=== PATIENT | female | born 1995 | race Two or more races ===

== ENCOUNTER → 2017-01-13 | Outpatient (CLI) | payer OTHER ==
[~2017-01-13] MED LIST: CETI10TA PO; FERR325T3 PO; MICR1TAB9 PO; NAPR500T2 PO; OMEP40CA2 PO
[2017-01-13 18:44] LABS: ALBUMIN 3.6 GM/DL (3.2-5.2); ALBUMIN/GLOBULIN RATIO 0.95 (1.00-1.93); ALKALINE PHOSPHATASE 54 U/L (45-117); ALT/SGPT 19 U/L (12-78); ANION GAP 7 MEQ/L (8-16); AST/SGOT 9 U/L (15-37); BILIRUBIN,TOTAL 0.2 MG/DL (0.2-1.0); BLOOD UREA NITROGEN 8 MG/DL (7-18); CALCIUM LEVEL 8.8 MG/DL (8.5-10.1); CARBON DIOXIDE LEVEL 25 MEQ/L (21-32); CHLORIDE LEVEL 108 MEQ/L (98-107); CHOLESTEROL LEVEL 191 MG/DL (<200); CREATININE FOR GFR 0.84 MG/DL (0.55-1.02); FERRITIN 25 NG/ML (8-252); GLOMERULAR FILTRATION RATE > 60.0 (>60); GLUCOSE, FASTING 79 MG/DL (70-105); POTASSIUM SERUM 4.2 MEQ/L (3.5-5.1); SODIUM LEVEL 140 MEQ/L (136-145); TOTAL PROTEIN 7.4 GM/DL (6.4-8.2); TRIGLYCERIDES LEVEL 83 MG/DL (<150)
[2017-01-13 18:49] LABS: BASO % 0.1 % (0.0-1.0); EOS % 0.2 % (0.0-3.0); LYMPH # 2.1 K/mm3 (1.5-6.5); LYMPH % 34.5 % (24.0-44.0); MEAN CORPUSCULAR HEMOGLOBIN 29.7 pg (27.0-33.0); MEAN CORPUSCULAR VOLUME 95.6 fl (80.0-96.0); MONO # 0.3 K/mm3 (0.0-0.8); MONO % 5.1 % (0.0-5.0); NEUTROPHILS # 3.5 K/mm3 (1.8-7.7); NEUTROPHILS % 58.5 % (36.0-66.0); RED CELL DISTRIBUTION WIDTH 11.7 % (11.5-14.5)
== END ==
LOC: M WUC 11:07
PROVIDERS: ATTEND Physician Assistant Medical
DX: D64.9 Anemia, unspecified (principal); E78.2 Mixed hyperlipidemia

== ENCOUNTER 2017-04-17 13:33 | Emergency (ER) | payer MEDICAID, OTHER ==
[~2017-04-17] VITALS: Ht 167.6 cm; Wt 68.6 kg
[~2017-04-17 13:33] MED LIST changes: -NAPR500T2 PO; +NAPR500T3 PO
[2017-04-17 13:34] VITALS: BP 102/69
[2017-04-17 15:23] LABS: BASO % 0.2 % (0.0-1.0); EOS % 0.6 % (0.0-3.0); LARGE UNSTAINED CELL # 0.1 K/mm3 (0.0-0.4); LARGE UNSTAINED CELL % 0.7 % (0.0-4.0); LYMPH # 1.5 K/mm3 (1.5-6.5); LYMPH % 17.8 % (24.0-44.0); MEAN CORPUSCULAR HEMOGLOBIN 30.6 pg (27.0-33.0); MEAN CORPUSCULAR HGB CONC 33.3 g/dl (32.0-36.5); MEAN CORPUSCULAR VOLUME 91.9 fl (80.0-96.0); MONO # 0.4 K/mm3 (0.0-0.8); MONO % 4.4 % (0.0-5.0); NEUTROPHILS # 6.3 K/mm3 (1.8-7.7); NEUTROPHILS % 76.4 % (36.0-66.0); PLATELET COUNT, AUTOMATED 254 k/mm3 (150-450); RED CELL DISTRIBUTION WIDTH 11.7 % (11.5-14.5); WHITE BLOOD COUNT 8.2 K/mm3 (4.0-10.0)
[2017-04-17] MEDS ORDERED: metroNIDAZOLE (FLAGYL) 500 MG TAB PO ONE (15:30)
--- NOTE | 2017-04-17 16:41 | REP ---
FIRST TRIMESTER ULTRASOUND: Real-time sonographic evaluation of the gravid uterus is performed utilizing transabdominal technique. There is a single living intrauterine gestation with estimated gestational age of 7 weeks 6 days based on a crown rump length of 15 mm. EDC is 11/28/2017. heart rate 168 beats per minute. There is no subchorionic hemorrhage. Cystic structure of the left ovary probably represents a corpus luteum 2.7 x 2.0 x 2.3 cm. Blood flow is seen in each ovary with duplex Doppler evaluation, with no torsion. Signed by Gideon Escalera MD 04/17/2017 05:00 P
[2017-04-17] MEDS ORDERED: FLAG500T PO (16:42)
== END 2017-04-17 16:58 | disposition home or self-care (01) ==
LOC: M ED 13:33
DX: O23.591 Infection of other part of genital tract in pregnancy, first trimester (principal); Z3A.01 Less than 8 weeks gestation of pregnancy

== ENCOUNTER → 2017-05-02 | Outpatient (CLI) | payer MEDICAID, OTHER ==
[~2017-05-02] MED LIST changes: +FLAG500T PO; +PRENTAB55 PO
[2017-05-02 10:44] LABS: BASO % 0.1 % (0.0-1.0); EOS % 0.2 % (0.0-3.0); LARGE UNSTAINED CELL # 0.1 K/mm3 (0.0-0.4); LYMPH # 1.5 K/mm3 (1.5-6.5); LYMPH % 20.1 % (24.0-44.0); MEAN CORPUSCULAR HEMOGLOBIN 31.4 pg (27.0-33.0); MEAN CORPUSCULAR HGB CONC 34.4 g/dl (32.0-36.5); MEAN CORPUSCULAR VOLUME 91.2 fl (80.0-96.0); MONO # 0.4 K/mm3 (0.0-0.8); MONO % 4.9 % (0.0-5.0); NEUTROPHILS # 5.4 K/mm3 (1.8-7.7); NEUTROPHILS % 73.6 % (36.0-66.0); PLATELET COUNT, AUTOMATED 241 k/mm3 (150-450); RED CELL DISTRIBUTION WIDTH 11.9 % (11.5-14.5); WHITE BLOOD COUNT 7.4 K/mm3 (4.0-10.0)
[2017-05-02 11:25] LABS: HBsAg Prenatal NEGATIVE (NEGATIVE)
== END ==
LOC: M LAB 09:53
PROVIDERS: ATTEND Obstetrics & Gynecology
DX: Z34.81 Encounter for supervision of other normal pregnancy, first trimester (principal)

== ENCOUNTER 2017-06-20 15:09 | Emergency (ER) | payer MEDICAID, OTHER ==
[~2017-06-20] VITALS: Ht 167.6 cm; Wt 68.4 kg
[~2017-06-20 15:09] MED LIST changes: -PRENTAB55 PO
[2017-06-20] MEDS ORDERED: PRENTAB55 PO (15:21)
[2017-06-20] MEDS ORDERED: ACETAMINOPHEN 325 MG TAB PO ONE (17:15)
[2017-06-20 17:51] LABS: BASO % 0.1 % (0.0-1.0); EOS # 0.2 K/mm3 (0.0-0.50); EOS % 1.6 % (0.0-3.0); LARGE UNSTAINED CELL # 0.1 K/mm3 (0.0-0.4); LARGE UNSTAINED CELL % 0.6 % (0.0-4.0); LYMPH # 1.4 K/mm3 (1.5-6.5); LYMPH % 11.7 % (24.0-44.0); MEAN CORPUSCULAR HEMOGLOBIN 30.6 pg (27.0-33.0); MEAN CORPUSCULAR HGB CONC 33.2 g/dl (32.0-36.5); MEAN CORPUSCULAR VOLUME 92.2 fl (80.0-96.0); MONO # 0.4 K/mm3 (0.0-0.8); MONO % 3.5 % (0.0-5.0); NEUTROPHILS # 9.3 K/mm3 (1.8-7.7); NEUTROPHILS % 82.4 % (36.0-66.0); PLATELET COUNT, AUTOMATED 213 k/mm3 (150-450); RED CELL DISTRIBUTION WIDTH 12.2 % (11.5-14.5); WHITE BLOOD COUNT 11.3 K/mm3 (4.0-10.0)
--- NOTE | 2017-06-20 18:05 | REP ---
STAT obstetric ultrasound: There is a single intrauterine gestation. position is variable. heart rate is 144 beats per minute. The placenta is anterior. There is no placenta previa or abruptio. Placenta is grade zero. Subjectively the amniotic fluid volume is normal. The cervix measures 3.4 cm in length. Maternal adnexa and cul-de-sac are unremarkable. By today's measurements the gestational age is 17 weeks 2 days with an MARYLIN of 11/26/1928 and. According to the first ultrasound during this gestation the gestational age is 17 weeks 0 days. weight is 188 grams (0 pounds, 6 ounces. This is the 59 percentile for 17 weeks 0 days. The gestation is premature for evaluation of anatomy, nevertheless, during the examination we identified normal cranium, choroid plexus, cavum septum pellucidum, cerebellum/posterior fossa, diaphragm, stomach, cord insertion, kidneys, bladder, spine and lower extremities. Complete anatomic survey might be considered at 20 weeks gestation. Signed by Gideon Rios MD 06/20/2017 05:56 P
[2017-06-20 18:47] LABS: ANION GAP 9 MEQ/L (8-16); BLOOD UREA NITROGEN 4 MG/DL (7-18); CALCIUM LEVEL 8.9 MG/DL (8.5-10.1); CARBON DIOXIDE LEVEL 25 MEQ/L (21-32); CHLORIDE LEVEL 104 MEQ/L (98-107); CREATININE FOR GFR 0.56 MG/DL (0.55-1.02); GLOMERULAR FILTRATION RATE > 60.0 (>60); GLUCOSE, FASTING 72 MG/DL (70-105); HCG, SERUM QUANTITATIVE 23037 MIU/ML; POTASSIUM SERUM 3.9 MEQ/L (3.5-5.1); SODIUM LEVEL 138 MEQ/L (136-145)
[2017-06-20 19:22] VITALS: BP 100/62
== END 2017-06-20 19:23 | disposition home or self-care (01) ==
LOC: M ED 15:09
DX: O20.9 Hemorrhage in early pregnancy, unspecified (principal); Z3A.17 17 weeks gestation of pregnancy

== ENCOUNTER → 2017-07-03 | Outpatient (CLI) | payer OTHER ==
[~2017-07-03] MED LIST changes: +PRENTAB55 PO
--- NOTE | 2017-07-04 05:48 | REP ---
Clinical: Anatomical evaluation. Comparison: 06/20/2017 . Findings: Examination demonstrates a single live intrauterine in breech presentation. motion is identified by technologist. Placenta is noted anteriorly and grade zero without evidence for placenta previa or abruption. Amniotic fluid volume is normal. Cervix measures 3.2 cm in length and appears closed. No evidence for nuchal cord. Gestational age by LMP 18 weeks 6 days with MARYLIN 11/28/2017 . Gestational age by current measurements 19 weeks 1 day with MARYLIN 11/26/2017 . FHR equals 144 beats per minute. Estimated weight 280 grams ( 62nd percentile). Anatomical assessment demonstrates normal structures including cranium, choroid plexus, cavum, cerebellum/posterior fossa, lungs, four-chamber heart, diaphragm, stomach, cord insertion/three-vessel cord, kidneys/bladder, spine, and extremities. Limited evaluation of the facial features and cardiac ventricular outflow tracts again noted. Impression: 1. Single live intrauterine in breech presentation demonstrating appropriate interval growth. 2. With exception of the facial features and cardiac ventricular outflow tracts, anatomical assessment is complete and normal. Signed by Johnnie Ramos MD 07/04/2017 05:40 A
== END ==
LOC: M RAD 11:07
PROVIDERS: ATTEND Advanced Practice Midwife
DX: Z34.80 Encounter for supervision of other normal pregnancy, unspecified trimester (principal)

== ENCOUNTER → 2017-08-02 | Outpatient (CLI) | payer OTHER ==
--- NOTE | 2017-08-02 13:04 | REP ---
OB ULTRASOUND: Real-time sonographic evaluation of the gravid uterus performed. There is a single living intrauterine gestation. Estimated gestational age is 23 weeks 1 day based on first ultrasound EDC 11/28/2017. Today's measurements indicate appropriate growth. BPD 53 mm = 22 weeks 2 days, 27th percentile HC 199 mm = 22 weeks 0 days, 18th percentile AC 180 mm = 22 weeks 6 days, 44th percentile Femur length 42 mm = 23 weeks 4 days, 63rd percentile HC/AC ratio 1.11 within normal range. Estimated weight 556 grams, 43rd percentile. Cervix is closed and measures 4.4 cm in length. heart rate 140 beats per minute. SEEN/GROSSLY UNREMARKABLE Lateral ventricles Yes Posterior fossa Yes Upper lip Yes Four-chamber heart Yes LVOT Yes RVOT Yes Stomach Yes Cord insertion Yes Three vessel cord Yes Kidneys Yes Bladder Yes Spine Yes position: Vertex. Placenta: Anterior and grade 0 with no previa or abruption. Amniotic fluid: Within normal limits. Signed by Gideon Escalera MD 08/02/2017 02:39 P
== END ==
LOC: M RAD 11:21
PROVIDERS: ATTEND Specialist
DX: Z36.2 Encounter for other antenatal screening follow-up (principal)

== ENCOUNTER → 2017-10-30 | Outpatient (REF) | payer OTHER, MEDICAID | LOC: M LAB REF 12:50 | DX: Z34.83 Encounter for supervision of other normal pregnancy, third trimester (principal) ==

== ENCOUNTER 2017-11-28 05:57 | Inpatient (IN) | payer OTHER, MEDICAID ==
[2017-11-28] MEDS: LACTATED RINGER'S 1000 ML IV (06:25)
[2017-11-28 06:37] LABS: HEMATOCRIT 37.1 % (36.0-47.0); HEMOGLOBIN 11.9 g/dl (12.0-16.0); MEAN CORPUSCULAR HEMOGLOBIN 27.1 pg (27.0-33.0); MEAN CORPUSCULAR HGB CONC 32.1 g/dl (32.0-36.5); MEAN CORPUSCULAR VOLUME 84.5 fl (80.0-96.0); PLATELET COUNT, AUTOMATED 223 10^3/uL (150-450); RED BLOOD COUNT 4.39 10^6/uL (4.00-5.40); RED CELL DISTRIBUTION WIDTH 12.7 % (11.5-14.5); WHITE BLOOD COUNT 15.1 10^3/uL (4.0-10.0)
[2017-11-28 06:52] LABS: GLUCOSE,RANDOM 88 MG/DL (LESS THAN 200)
[2017-11-28] MEDS ORDERED: OXYTOCIN 30 UNITS IN 0.9% NaCl 500ML IV BAG (J2590) As Ordered (07:23)
[2017-11-28 07:27] LABS: AMPHETAMINES URINE REFLEX NEGATIVE (NEGATIVE); BARBITURATES URINE REFLEX NEGATIVE (NEGATIVE); BENZODIAZEPINES URINE REFLEX NEGATIVE (NEGATIVE); CANNABINOIDS URINE REFLEX NEGATIVE (NEGATIVE); COCAINE METABOLITE URINE REFLE NEGATIVE (NEGATIVE); METHADONE URINE REFLEX NEGATIVE (NEGATIVE); OPIATES URINE REFLEX NEGATIVE (NEGATIVE); PHENCYCLIDINE URINE REFLEX NEGATIVE (NEGATIVE)
[2017-11-28 07:52] LABS: CORD GAS ABE V -8.1; CORD GAS O2 SAT V 22.5 %; CORD GAS PH V 7.184 UNITS; CORD GAS PO2 V 13.4 mmHg; CORD GAS SBC V 16.4 MEQ/L; CORD GAS TCO2 V 22.7 MEQ/L
[2017-11-28 07:54] LABS: CORD GAS ABE A -10.2; CORD GAS HCO3 A 19.3 MEQ/L; CORD GAS O2 SAT A 22.5 %; CORD GAS PH A 7.148 UNITS; CORD GAS PO2 A 15.4 mmHg; CORD GAS SBC A 14.9 MEQ/L; CORD GAS TCO2 A 21.1 MEQ/L
[2017-11-28] MEDS: OXYTOCIN DRIP 30 UNITS in APPROPRIATE DILUENT 1 EA IV (08:05)
[2017-11-28] MEDS: LR 1,000 ML IV (08:06)
[2017-11-28] MEDS ORDERED: METHYLERGONOVINE MALEATE 0.2 MG TAB PO (08:15)
[2017-11-28] MEDS: LIDOCAINE 1% MDV INJ 50 ML VIAL INFIL (08:15)
[2017-11-28] MEDS ORDERED: DOCUSATE SODIUM 100 MG CAP PO (08:15)
[2017-11-28] MEDS ORDERED: MOM 30ML SUSPENSION UDC PO (08:15)
[2017-11-28] MEDS ORDERED: MEASLES,MUMPS,RUBELLA VACCINE INJ (MMR-II) (90707) SC (08:15)
[2017-11-28] MEDS ORDERED: RHOGAM 300 MCG (1500 IU) INJ (J2790) IM (08:15)
[2017-11-28] MEDS ORDERED: ANUSOL HC CREAM 30GM TOP (08:15)
[2017-11-28] MEDS ORDERED: IBUPROFEN 800 MG TAB PO (08:15)
[2017-11-28] MEDS ORDERED: ACETAMINOPHEN 500 MG TAB PO (08:15)
[2017-11-28 12:13] LABS: BEDSIDE GLUCOSE 89 MG/DL (70-105)
[2017-11-28] MEDS: PRENATAL VITAMINS CHEWABLE TABLET PO (14:15)
[2017-11-28] MEDS: DIBUCAINE 1% OINTMENT 30GM TOP (14:16)
[2017-11-29] MEDS: PRENATAL VITAMINS CHEWABLE TABLET PO (09:02)
[2017-11-30] MEDS: PRENATAL VITAMINS CHEWABLE TABLET PO (07:59)
== END 2017-11-30 11:45 | disposition home or self-care (01) | DRG 560 ==
LOC: M LDO 05:57 → M LDI 06:20 → M OBS 13:59
PROVIDERS: Specialist
PROC: 10E0XZZ Delivery of Products of Conception, External Approach (ICD-10-PCS; principal; 2017-11-28)
PROC: 0HQ9XZZ Repair Perineum Skin, External Approach (ICD-10-PCS; 2017-11-28)
DX: O62.3 Precipitate labor (principal); Z3A.40 40 weeks gestation of pregnancy; O77.0 Labor and delivery complicated by meconium in amniotic fluid; O76 Abnormality in fetal heart rate and rhythm complicating labor and delivery; O70.0 First degree perineal laceration during delivery; O32.6XX0 Maternal care for compound presentation, not applicable or unspecified; Z37.0 Single live birth

== ENCOUNTER 2019-06-14 17:57 | Emergency (ER) | payer OTHER ==
[~2019-06-14] VITALS: Ht 167.6 cm; Wt 63.6 kg
[~2019-06-14 17:57] MED LIST changes: +IBUP-1114 PO; +MAPA500T2 PO; +MICR1TAB17 PO; -MICR1TAB9 PO; +NAPR-885 PO; -NAPR500T3 PO
[2019-06-14] MEDS ORDERED: NS 1,000 ML IV ONE (18:15)
[2019-06-14 18:21] LABS: BASO % 0.1 % (0.0-1.0); HEMATOCRIT 36.4 % (36.0-47.0); HEMOGLOBIN 11.3 g/dl (12.0-15.5); LYMPH # 2.1 10^3/uL (1.5-5.0); LYMPH % 21.5 % (24.0-44.0); MEAN CORPUSCULAR VOLUME 83.9 fl (80.0-96.0); MONO # 0.6 10^3/uL (0.0-0.8); MONO % 5.6 % (0.0-5.0); NEUTROPHILS # 7.1 10^3/uL (1.5-8.5); NEUTROPHILS % 72.5 % (36.0-66.0); PLATELET COUNT, AUTOMATED 297 10^3/uL (150-450); RED BLOOD COUNT 4.34 10^6/uL (4.00-5.40); WHITE BLOOD COUNT 9.8 10^3/uL (4.0-10.0)
[2019-06-14 19:18] LABS: ACETAMINOPHEN LEVEL < 2.0 UG/ML (10.0-30.0); ALBUMIN 3.8 GM/DL (3.2-5.2); ALT/SGPT 14 U/L (12-78); BILIRUBIN,DIRECT 0.2 MG/DL (0.0-0.2); BILIRUBIN,TOTAL 0.6 MG/DL (0.2-1.0); BLOOD UREA NITROGEN 7 MG/DL (7-18); CALCIUM LEVEL 9.3 MG/DL (8.5-10.1); CARBON DIOXIDE LEVEL 21 MEQ/L (21-32); CHLORIDE LEVEL 108 MEQ/L (98-107); CREATININE FOR GFR 0.89 MG/DL (0.55-1.30); ETHYL ALCOHOL (ETHANOL) < 0.003 % (0.000-0.010); GLOMERULAR FILTRATION RATE > 60.0 (>60); GLUCOSE, FASTING 140 MG/DL (70-100); HCG, SERUM QUANTITATIVE 21086 MIU/ML; POTASSIUM SERUM 3.7 MEQ/L (3.5-5.1); SALICYLATE LEVEL < 1.7 MG/DL (5.0-30.0); SODIUM LEVEL 138 MEQ/L (136-145); TOTAL PROTEIN 7.1 GM/DL (6.4-8.2)
--- NOTE | 2019-06-14 19:50 | REPVR ---
EXAM: CT Head Without Contrast EXAM DATE/TIME: 06/14/2019 7:07 PM CLINICAL HISTORY: 23 years old, female; Altered mental status/memory loss; Confusion or disorientation; Additional info: AMS TECHNIQUE: Imaging protocol: Computed tomography of the head without contrast. Radiation optimization: All CT scans at this facility use at least one of these dose optimization techniques: automated exposure control; mA and/or kV adjustment per patient size (includes targeted exams where dose is matched to clinical indication); or iterative reconstruction. COMPARISON: No relevant prior studies available. FINDINGS: Brain: No CT evidence of acute intracranial hemorrhage or acute territorial infarction. No significant mass effect or midline shift. Basal cisterns patent. Ventricles: Normal in size and configuration. Bones/joints: No acute osseous abnormality. Sinuses: Grossly unremarkable. Mastoid air cells: Grossly unremarkable. Soft tissues: Grossly unremarkable. IMPRESSION: No CT evidence of acute intracranial pathology. Electronically signed by: Rodrigo Son On 06/14/2019 19:50:16 PM
[2019-06-14 21:14] LABS: AMPHETAMINES LEVEL URINE NEGATIVE (NEGATIVE); BARBITURATES URINE NEGATIVE (NEGATIVE); BENZODIAZEPINES URINE NEGATIVE (NEGATIVE); CANNABINOIDS URINE NEGATIVE (NEGATIVE); COCAINE METABOLITE URINE NEGATIVE (NEGATIVE); METHADONE URINE NEGATIVE (NEGATIVE); OPIATES URINE NEGATIVE (NEGATIVE); PHENCYCLIDINE URINE NEGATIVE (NEGATIVE)
[2019-06-14 21:18] VITALS: BP 125/75
--- NOTE | 2019-06-15 20:31 | ECGEPIP ---
[facility] - ED Test Date: 2019-06-14 Pat Name: JEANNE NAM Department: Room: - Gender: Female [employer] Professor: : [id number] Requested By: DELORIS MENDES Order Number: [id number] Reading MD: Juju Lopez Measurements Intervals [place] Rate: 78 P: 40 ME: 147 QRS: 67 QRSD: 88 T: 44 QT: 381 QTc: 434 Interpretive Statements SINUS RHYTHM WITH SINUS ARRHYTHMIA NSTTW abnormalities NO PRIOR Electronically Signed on 06-15-2019 20:31:26 EDT by Juju Lopez
== END 2019-06-14 21:42 | disposition home or self-care (01) ==
LOC: M ED 17:57 → EDBD 17:57 → M ED 21:42
DX: O26.891 Other specified pregnancy related conditions, first trimester (principal); R55 Syncope and collapse; O99.419 Diseases of the circulatory system complicating pregnancy, unspecified trimester; I49.9 Cardiac arrhythmia, unspecified; Z3A.00 Weeks of gestation of pregnancy not specified; Y99.0 Civilian activity done for income or pay; Z91.018 Allergy to other foods
CPT/HCPCS: 70450; 80048; 80076; 80307; 81001; 84443; 84702; 85025; 93005; 93041; 99284; G0480

== ENCOUNTER → 2019-07-10 | Outpatient (CLI) | payer OTHER ==
[2019-07-10 14:55] LABS: BASO % 0.1 % (0.0-1.0); HEMATOCRIT 39.2 % (36.0-47.0); HEMOGLOBIN 12.1 g/dl (12.0-15.5); LYMPH # 2.2 10^3/uL (1.5-5.0); LYMPH % 25.3 % (24.0-44.0); MEAN CORPUSCULAR HEMOGLOBIN 27.3 pg (27.0-33.0); MEAN CORPUSCULAR HGB CONC 30.9 g/dl (32.0-36.5); MEAN CORPUSCULAR VOLUME 88.3 fl (80.0-96.0); MONO # 0.6 10^3/uL (0.0-0.8); MONO % 7.3 % (0.0-5.0); NEUTROPHILS # 5.7 10^3/uL (1.5-8.5); NEUTROPHILS % 66.9 % (36.0-66.0); PLATELET COUNT, AUTOMATED 288 10^3/uL (150-450); RED BLOOD COUNT 4.44 10^6/uL (4.00-5.40); WHITE BLOOD COUNT 8.5 10^3/uL (4.0-10.0)
[2019-07-10 16:09] LABS: CHLAMYDIA DNA AMPLIFICATION NEGATIVE (NEGATIVE); GC DNA AMPLIFICATION NEGATIVE (NEGATIVE)
[2019-07-11 10:50] LABS: HEPATITIS C VIRUS ABY INDEX 0.2 INDEX (<0.8); HIV 1&2 SCREEN CENTAUR NEGATIVE (NEGATIVE); RUBELLA IgG QUALITATIVE IMMUNE (IMMUNE)
== END ==
LOC: M SMT 09:23
PROVIDERS: ATTEND Obstetrics & Gynecology
DX: Z36.89 Encounter for other specified antenatal screening (principal); Z3A.00 Weeks of gestation of pregnancy not specified

== ENCOUNTER → 2019-09-25 | Outpatient (CLI) | payer OTHER ==
[~2019-09-25] MED LIST changes: -OMEP40CA2 PO; +OMEP40CA97 PO
--- NOTE | 2019-09-25 09:16 | REP ---
Obstetric sonography: History: Supervision of for anatomy. Findings: Scanning through the gravid uterus demonstrates a viable single intrauterine gestation in a cephalic lie. motion is observed and heart rate is recorded at 136 beats per minute. An anterior grade 0 placenta is seen without evidence of previa. Amniotic fluid is subjectively normal. Closed cervical length is 4.3 cm. No extrauterine abnormalities observed. No anomaly is seen. The following anatomic structures are identified and felt to be sonographically unremarkable: cranium, choroid plexus, cavum, cerebellum and posterior fossa, face and profile, lungs, four-chamber heart with left and right jugular outflow tract views, diaphragm, left-sided stomach, abdominal wall cord insertion, three-vessel cord, kidneys and bladder, spine, upper and lower extremities. Biometry chart: BPD 5.0 cm = 21 weeks 1 day Head circumference 19.6 cm = 21 weeks 6 days Abdominal circumference 16.5 cm = 21 weeks 4 days Femur length 3.7 cm = 21 weeks 4 days Humeral length 3.5 cm = 21 weeks 6 days Cerebellar diameter 2.3 cm = 21 weeks 3 days HC/AC ratio normal 1.19. Cephalic index 0.68 (0.70-0.86). Estimated weight 435 grams, 0 pounds 5 ounces, greater than 97th percentile for 20 weeks 0 days. Impression: Viable single intrauterine gestation at 21 weeks 4 days by today's composite sonographic criteria. MARYLIN by today's sonography February 01, 2020. No anatomic abnormality. Electronically Signed by Michael Heart MD 09/25/2019 02:22 P
== END ==
LOC: M RAD 08:03
PROVIDERS: ATTEND Advanced Practice Midwife
DX: Z3A.21 21 weeks gestation of pregnancy (principal)

== ENCOUNTER → 2019-12-09 | Outpatient (CLI) | payer OTHER ==
[2019-12-09 13:59] LABS: HEMATOCRIT 30.5 % (36.0-47.0); HEMOGLOBIN 9.1 g/dl (12.0-15.5); MEAN CORPUSCULAR HEMOGLOBIN 24.6 pg (27.0-33.0); MEAN CORPUSCULAR HGB CONC 29.8 g/dl (32.0-36.5); MEAN CORPUSCULAR VOLUME 82.4 fl (80.0-96.0); PLATELET COUNT, AUTOMATED 199 10^3/uL (150-450); WHITE BLOOD COUNT 8.9 10^3/uL (4.0-10.0)
== END ==
LOC: M LAB 12:07
PROVIDERS: ATTEND Specialist
DX: Z36.89 Encounter for other specified antenatal screening (principal)

== ENCOUNTER → 2020-01-19 | Outpatient (REF) | payer OTHER | LOC: M SFHCWAGY 13:16 | PROVIDERS: ATTEND Advanced Practice Midwife | DX: Z34.93 Encounter for supervision of normal pregnancy, unspecified, third trimester (principal); Z3A.00 Weeks of gestation of pregnancy not specified ==

== ENCOUNTER 2020-02-08 10:24 | Inpatient (IN) | payer OTHER ==
[~2020-02-08] VITALS: Ht 167.6 cm; Wt 79.0 kg
[2020-02-08] MEDS ORDERED: OXYTOCIN 30 UNITS IN 0.9% NaCl 500ML IV BAG (J2590) As Ordered ONE (10:33)
[2020-02-08 10:43] VITALS: BP 104/56
[2020-02-08 10:58] VITALS: BP 111/65
[2020-02-08] MEDS ORDERED: PROMETHAZINE 25 MG TAB PO PRN (11:00)
[2020-02-08] MEDS ORDERED: ONDANSETRON 4MG/2ML VIAL IV PRN (11:00)
[2020-02-08] MEDS ORDERED: IBUPROFEN 600 MG TAB PO PRN (11:00)
[2020-02-08] MEDS ORDERED: RHOGAM 300 MCG (1500 IU) INJ (J2790) IM SCH (11:00)
[2020-02-08] MEDS ORDERED: DOCUSATE SODIUM 100 MG CAP PO PRN (11:00)
[2020-02-08] MEDS ORDERED: LIDOCAINE 1% MDV 20ML VIAL INFIL ONE (11:00)
[2020-02-08] MEDS ORDERED: LR 1,000 ML IV SCH (11:00)
[2020-02-08] MEDS ORDERED: ACETAMINOPHEN 500 MG TAB PO PRN (11:00)
[2020-02-08] MEDS ORDERED: MEASLES,MUMPS,RUBELLA VACCINE INJ (MMR-II) (90707) SC SCH (11:00)
[2020-02-08] MEDS ORDERED: DIBUCAINE 1% OINTMENT 30GM TOP PRN (11:00)
[2020-02-08] MEDS ORDERED: OXYTOCIN DRIP 30 UNITS in IV 1 EA IV SCH (11:00)
[2020-02-08] MEDS ORDERED: ACETAMINOPHEN TAB 650MG DOSE (2X325MG) PO PRN (11:00)
[2020-02-08] MEDS ORDERED: IBUPROFEN 800 MG TAB PO PRN (11:00)
[2020-02-08 11:13] VITALS: BP 108/59
[2020-02-08 11:28] VITALS: BP 107/62
[2020-02-08 11:57] LABS: HEMOGLOBIN 7.9 g/dl (12.0-15.5); MEAN CORPUSCULAR HEMOGLOBIN 21.8 pg (27.0-33.0); MEAN CORPUSCULAR HGB CONC 28.2 g/dl (32.0-36.5); MEAN CORPUSCULAR VOLUME 77.3 fl (80.0-96.0); PLATELET COUNT, AUTOMATED 210 10^3/uL (150-450); RED BLOOD COUNT 3.62 10^6/uL (4.00-5.40); WHITE BLOOD COUNT 19.3 10^3/uL (4.0-10.0)
[2020-02-08 13:15] VITALS: BP 116/64
[2020-02-08] MEDS: PRENATAL VITAMINS CHEWABLE TABLET PO SCH (13:19)
[2020-02-08 18:00] VITALS: BP 110/65
[2020-02-09 06:30] VITALS: BP 106/54
[2020-02-09] MEDS: PRENATAL VITAMINS CHEWABLE TABLET PO SCH (10:40)
[2020-02-09 18:00] VITALS: BP 114/64
== END 2020-02-09 19:00 | disposition home or self-care (01) | DRG 546 ==
LOC: EEVIPCON 10:24 → M LDI 10:24 → M OBS 12:55
PROVIDERS: ADMIT Obstetrics & Gynecology; ATTEND Obstetrics & Gynecology
PROC: 0HQ9XZZ Repair Perineum Skin, External Approach (ICD-10-PCS; principal; 2020-02-08)
DX: Z39.0 Encounter for care and examination of mother immediately after delivery (principal); O70.0 First degree perineal laceration during delivery

== ENCOUNTER → 2021-05-12 | Outpatient (REF) | payer OTHER ==
[~2021-05-12] MED LIST changes: +OMEP40CA4 PO; -OMEP40CA97 PO
== END ==
LOC: M SFHCWAGY 13:27
PROVIDERS: ATTEND Obstetrics & Gynecology
DX: R30.0 Dysuria (principal); N77.1 Vaginitis, vulvitis and vulvovaginitis in diseases classified elsewhere

== ENCOUNTER → 2022-08-01 | Outpatient (REF) | payer OTHER | LOC: M PLALAB 14:23 | PROVIDERS: ATTEND Obstetrics & Gynecology | DX: Z12.4 Encounter for screening for malignant neoplasm of cervix (principal) ==

== ENCOUNTER → 2023-08-03 | Outpatient (REF) | payer OTHER | LOC: M SFHCWAGY 09:57 | PROVIDERS: ATTEND Obstetrics & Gynecology | DX: Z12.4 Encounter for screening for malignant neoplasm of cervix (principal); Z77.9 Other contact with and (suspected) exposures hazardous to health ==

== ENCOUNTER → 2024-12-18 | Outpatient (REF) | payer OTHER ==
[2024-12-20 13:01] LABS: HPV APTIMA Not Detected (Not Detected)
== END ==
LOC: M PLALAB 09:49
PROVIDERS: ATTEND Obstetrics & Gynecology
DX: Z12.4 Encounter for screening for malignant neoplasm of cervix (principal); R87.610 Atypical squamous cells of undetermined significance on cytologic smear of cervix (ASC-US)

== ENCOUNTER → 2025-02-24 | Outpatient (CLI) | payer OTHER ==
[2025-02-24 07:29] LABS: HEMATOCRIT 39.7 % (36.0-47.0); HEMOGLOBIN 11.8 g/dl (12.0-15.5); LYMPH # 2.4 10^3/uL (1.5-5.0); LYMPH % 42.2 % (24.0-44.0); MEAN CORPUSCULAR HEMOGLOBIN 24.7 pg (27.0-33.0); MEAN CORPUSCULAR HGB CONC 29.7 g/dl (32.0-36.5); MEAN CORPUSCULAR VOLUME 83.2 fl (80.0-96.0); MONO # 0.5 10^3/uL (0.0-0.8); MONO % 8.5 % (2.0-8.0); NEUTROPHILS # 2.8 10^3/uL (1.5-8.5); NEUTROPHILS % 49.1 % (36.0-66.0); PLATELET COUNT, AUTOMATED 282 10^3/uL (150-450); RED BLOOD COUNT 4.77 10^6/uL (4.00-5.40); WHITE BLOOD COUNT 5.7 10^3/uL (4.0-10.0)
[2025-02-24 07:53] LABS: ALBUMIN 3.6 G/DL (3.2-5.2); BILIRUBIN,TOTAL 0.5 MG/DL (0.3-1.2); CALCIUM LEVEL 8.9 MG/DL (8.5-10.1); CHOLESTEROL RISK RATIO 3.02 (<5); CREATININE FOR GFR 0.89 MG/DL (0.55-1.30); GLOMERULAR FILTRATION RATE 89.4 (>60); HDL CHOLESTEROL 53.3 MG/DL (>40); LDL CHOLESTEROL 86.1 MG/DL (<100); NON-HDL-C 107.7 MG/DL; POTASSIUM SERUM 3.9 MMOL/L (3.5-5.1); TOTAL PROTEIN 7.1 G/DL (5.7-8.2)
[2025-02-24 07:55] LABS: FREE T4 1.02 NG/DL (0.89-1.76); THYROID STIMULATING HORMONE 5.461 uIU/ML (0.55-4.78)
== END ==
LOC: M LAB 06:47
PROVIDERS: ATTEND Nurse Practitioner Family
DX: D64.9 Anemia, unspecified (principal); R53.83 Other fatigue; Z13.220 Encounter for screening for lipoid disorders